=== PATIENT | male | born 1965 | race Caucasian/White ===

== ENCOUNTER → 2016-09-03 | Outpatient (CLI) | payer OTHER ==
--- NOTE | 2016-09-03 10:20 | RADIOLOGY REPORT PS360 ---
EXAM: Barium swallow/esophagram. INDICATION: Fall with neck, burning, reflux ORDERING PHYSICIAN: RADHA SNIDER PATIENT AGE: 51 years COMPARISON: None TECHNIQUE: In the upright position the patient was observed to swallow barium in both the AP and lateral view. The cervical esophagus was examined under fluoroscopy with images obtained. The patient was then placed prone in the right anterior oblique position and was observed to swallow barium with Valsalva technique . FLUOROSCOPY TIME: 1 minute 42 seconds FINDINGS: There was no evidence of aspiration. There was normal peristalsis. No filling defects or mucosal abnormalities. No masses or strictures. No evidence of hiatal hernia. IMPRESSION: Negative barium swallow.
== END ==
LOC: RAD 09:00
DX: K21.9 Gastro-esophageal reflux disease without esophagitis (principal)